=== PATIENT | male | born 2000 | race Caucasian/White ===

== ENCOUNTER 2024-11-02 15:23 | Outpatient (REF) | payer OTHER, SELFPAY ==
--- NOTE | ~2024-11-02 | MR_ITS ---
EXAMINATION: MR LUMBAR SPINE WITHOUT CONTRAST CLINICAL INFORMATION: Low back pain. COMPARISON: None available. TECHNIQUE: MRI of the lumbar spine was obtained using routine sequences without contrast. FINDINGS: Last rib-bearing vertebra labeled T12. No bone marrow STIR signal abnormality. Multilevel Schmorl nodes in the superior endplates of L1, L2 and L3. There is normal alignment. There is loss of the physiologic lordosis which could be positional. Conus medullaris ends at the inferior endplate of T12 with normal signal. There is a right-sided transverse processes of L5 articulating with the S1. T12-L1: No disc herniation. No neuroforamina stenosis. L1-2: Broad-based disc bulging. No central spinal canal or neuroforamina stenosis. L2-3: Broad-based disc bulging. No central spinal canal or neuroforamina stenosis. L3-4: Broad-based disc bulging. Facet joint hypertrophy. Reduced AP diameter of the thecal sac and the neural foramina. No compression upon neural elements. L4-5: There is a broad-based right subarticular foraminal disc herniation abutting likely encroaching right L5 nerve root on its lateral recess. Facet joint hypertrophy bilaterally. Reduced AP diameter of the thecal sac. L5-S1: Broad-based disc bulging. Facet joint hypertrophy. Reduced AP diameter of the thecal sac and the neural foramina. No prevertebral compartment hematoma, mass or fluid collection. MR/MR lumbar spine wo con IMPRESSION: Broad-based right subarticular and foraminal disc herniation at L4-5 encroaching and or compressing right L5 nerve root on its lateral recess. 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 Electronically signed by: Elliot Hernandez MD 11/03/2024 07:44 AM EDT
--- OUTSIDE RECORDS SUMMARY | 2024-11-02 16:49 | XMS_ITS | Clinical Summary ---
Author Organization [facility] Address [address] [place] [address] Care Team Providers Care Patrol Man Name Role Phone Phi Koroma Primary Care Provider [phone] Allergies No known active allergies Medications cetirizine (ZYRTEC) 10 mg Tablet take 10 mg every day by mouth . Active Active Problems Problem Noted Date Diagnosed Date Environmental and seasonal allergies 12/02/2023 Immunizations Name Administration Dates Next Due Boostrix (Tdap Booster) 02/25/2010 TDAP Vaccine 12/02/2023,02/25/2010 Family History Medical History Relation Name Comments Migraines Brother Migraines Father Thyroid Disease Maternal Aunt High Cholesterol Maternal Grandfather High Blood Pressure Maternal Grandmother High Cholesterol Paternal Aunt High Blood Pressure Paternal Grandfather High Cholesterol Paternal Grandfather Relation Name Status Comments Brother Father Maternal Aunt Maternal Grandfather Maternal Grandmother Paternal Aunt Paternal Grandfather Social History Tobacco Use Types Packs/Day Years Used Date Smoking Tobacco: Some Days Cigars Smokeless Tobacco: Never Tobacco Cessation:Ready to Q uit: Not Asked; Counseling Given: Not Answered Alcohol Use Standard Drinks/Week Comments Yes 0 (1 standard drink = 0.6 oz pur e alcohol) socially Sex and Gender Information Value Date Recorded Sex Assigned at Male 11/09/2023 12:34 PM EDT Legal Sex Male 8:50 AM EDT Gender Identity Male 11/09/2023 12:34 PM EDT Sexual Orientation Not on file Last Filed Vital Signs Vital Sign Reading Time Taken Comments Blood Pressure 115/68 12/02/2023 8:39 AM EDT Pulse 67 12/02/2023 8:39 AM EDT Temperature 36.9 ??C (98.4 ??F) 12/02/2023 8:39 AM ED T Respiratory Rate - - Oxygen Saturation 95% 12/02/2023 8:39 AM EDT Inhaled Oxygen Concentration - - Weight 97.2 kg (214 lb 3.2 oz) 12/02/2023 8:39 A M EDT Height 190.5 cm (6' 3 ) 12/02/2023 8:39 AM EDT Body Mass Index 26.77 12/02/2023 8:39 AM EDT Plan of Treatment Upcoming Encounters Date Type Department Care Team (Late st Contact Info) Description 12/04/2024 8:00 AM EDT Office Visit [facility] [address] [place] [address] Phi Koroma, [address] [place] [address] Health Maintenance Due Date Last Done Comments Pneum Vac:Ped 0-5/At-Risk 6-64yrs (1 of 2 - PCV) 10/01/2018 COVID-19 Vaccine ( - 2023-2 5 season) 2024 Influenza Vaccine (#1) 2024 DTaP/Tdap/Td Vaccine (3 - Td or Tdap) 12/01/2033 12/02/2023, 02/25/2010, 02/25/2010 Zoster Vaccines (1 of 2) 10/01/2049 Hepatitis B Vaccines Completed 01/06/2001 (Previously completed), 07/05/2000 (Previously completed), 04/21/2000 (Previously completed) HPV Vaccines Completed 03/03/2012 (Previously completed), 05/04/2011 (Previously completed), 03/02/2011 (Previously completed) HIV Screening Completed 12/02/2023 Hepatitis C Screening Completed 12/02/2023 HIB Vaccines Aged Out No longer eligi ble based on patient's age to complete this topic Hepatitis A Vaccines Aged Out No long er eligible based on patient's age to complete this topic IPV Vaccines Aged Out No longer eligi ble based on patient's age to complete this topic Meningococcal (MEN-ACWY) Vaccine Aged Out No longer eligible b ased on patient's age to complete this topic Rotavirus Vaccine Aged Out No longer eligible based on patient's age to complete this topic Procedures Procedure Name Priority Date/Time Associated Diagnosis Comments HEPATITIS C ANTIBODY REFLEX(HCREF) Routine 12/02/2023 9:08 AM EDT Annual physical exam Encounter for hepatitis C screening test for low risk patient HIV 1/2 AB P24AG W/RFLX CONFIRM (CHIV) Routine 12/02/2023 9:08 AM EDT Annual physical exam Screening for HIV (human immunodeficiency virus) from Last 3 Months or Most Recently Relevant to Health Maintenance Results * HIV 1/2 AB P24AG W/RFLX CONFIRM (CHIV) (12/02/2023 9:08 AM EDT) HIV 1/2 AB p24AG W RFLX Confirm Nonreactive Nonreactive [facility] Comment: Lab studies performed by: [facility] located at [facility], [address] [place] [address]. [place] [address] 12/02/2023 9:08 AM EDT 12/02/2023 5:33 PM EDT Phi Koroma DO LAB SEND OUTS Final Result [facility] [place], [place] * HEPATITIS C ANTIBODY REFLEX(HCREF) (12/02/2023 9:08 AM EDT) Hepatitis C Ab Screen Nonreactive Nonreactive [facility] HCV AB Sample/[place] Ratio <0.02 0.00 - 0.79 [facility] Comment: Neg (Note) Confirmatory testing by PCR will be performed as recommended by the CDC for all Reactive Screen or Equivocal results. Lab studies performed by: [facility] located at [facility], [address] [place] [address] Blood, Venous 12/02/2023 9:0 8 AM EDT 12/02/2023 5:33 PM EDT Phi Koroma DO CHEMISTRY ORDERABLES Final Re sult [facility] [place], [place] from Last 3 Months or Most Recently Relevant to Health Maintenance Insurance [employer] Care Teams Patrol Man Relationship Specialty Start Date End Date Phi Koroma DO [address] [place] [address] [address] [place] [id number] PCP - General Family Medicine 12/02/23
== END 2024-11-02 15:24 | disposition home or self-care (01) ==
LOC: HO.MRI 15:23
PROVIDERS: PCP Family Medicine; Visit Provider Family Medicine
DX: M54.50 Low back pain, unspecified (principal)
CPT/HCPCS: 72148

== ENCOUNTER → 2024-11-02 15:33 | Outpatient (BNV) | payer OTHER, SELFPAY | PROVIDERS: PCP Family Medicine; Visit Provider Radiology Diagnostic Radiology | DX: M51.16 Intervertebral disc disorders with radiculopathy, lumbar region (principal) | CPT/HCPCS: 72148 ==